=== PATIENT | female | born 1960 ===

== ENCOUNTER → 2022-01-12 | Outpatient (CLI) | LOC: M SOG 08:06 | PROVIDERS: ATTEND Orthopaedic Surgery | DX: M25.511 Pain in right shoulder (principal) ==

== ENCOUNTER → 2022-01-14 | Outpatient (CLI) | LOC: M SOG 08:43 | PROVIDERS: ATTEND Orthopaedic Surgery Hand Surgery | DX: M79.642 Pain in left hand (principal) ==